=== PATIENT | male | born 1990 | race Caucasian/White ===

== ENCOUNTER → 2018-03-21 | Outpatient (CLI) | payer OTHER ==
[~2018-03-21] MED LIST: AZIT-17 PO; FLUT16SP19; METH4TAB66 PO; ONDA8TAB98 PO
[2018-03-21 07:26] LABS: PLATELET COUNT, AUTOMATED 188 K/uL (150-450)
[2018-03-21 08:53] LABS: LDL CHOLESTEROL 78 mg/dl
== END ==
LOC: LAB 07:08
PROVIDERS: ATTEND Internal Medicine
DX: Z00.00 Encounter for general adult medical examination without abnormal findings (principal)
CPT/HCPCS: 36415; 81001; 82040; 82247; 82310; 82374; 82435; 82465; 82565; 82947; 83718; 84075; 84132; 84155; 84295; 84443; 84450; 84460; 84478; 84520; 85025

== ENCOUNTER → 2018-03-21 | Outpatient (CLI) | payer OTHER ==
--- NOTE | 2018-03-21 15:43 | RADIOLOGY IMAGING REPORT ---
[place] [facility] [place]: Joni Plasencia : 1990 MR: [id number] V: [id number] EXAM DATE: ORDERING PHYSICIAN: PATY QUINTANILLA TECHNOLOGIST: Location: [facility] Patient: Joni Plasencia : 1990 Visit/Account:[id number] Date of Sevice: 03/21/2018 Exam type: CERVICAL SPINE 2 OR 3 VIEW History: neck strain Comparison: None. Findings: C1 through C7 are seen in gross anatomic alignment. There is no evidence of acute fractures or sublu xations. The disc spaces appear well-preserved. IMPRESSION: 1. Unremarkable cervical spine series. If the Patient's symptoms persist an MR may be helpful Report Dictated By: Maribell Yoon MD at 03/21/2018 3:38 PM Report E-Signed By: Maribell Yoon MD at 03/21/2018 3:40 PM WSN:[id number]
== END ==
LOC: RAD 13:32
PROVIDERS: ATTEND Internal Medicine
DX: S16.1XXA Strain of muscle, fascia and tendon at neck level, initial encounter (principal)
CPT/HCPCS: 72040